=== PATIENT | female | born 1980 ===

== ENCOUNTER 2018-06-12 13:16 | Emergency (ER) | payer BC, MEDICAID ==
[2018-06-12 13:42] VITALS: BP 115/77; PULSE 77; RESP 20; TEMP 98.8; O2SAT 100
--- NOTE | 2018-06-12 14:30 | C.PDOC ---
History Of Present Illness 37 y/o female presents to the ER complaining of anxiety and occasional palpitations. Patient states that her sister in the [place] today, her sister had long course of complications after childbirth. Patient denies having history of anxiety, CP, and SOB. Time Seen by Provider: 06/12/18 14:24 Chief Complaint (Nursing): Medical Clearance History Per: Patient History/Exam Limitations: no limitations Onset/Duration Of Symptoms: Hrs Current Symptoms Are (Timing): Still Present Severity: Moderate Past Medical History Reviewed: Historical Data, Nursing Documentation, Vital Signs Vital Signs: Last Vital Signs Temp 98.8 F 06/12/18 13:38 Pulse 77 06/12/18 13:38 Resp 20 06/12/18 13:38 BP 115/77 06/12/18 13:38 Pulse Ox 100 06/12/18 13:38 - Medical History PMH: Anemia (sickle cell trait) Denies: Chronic Kidney Disease Surgical History: Appendectomy - [facility] Procedures EXTRACTION OF POC, LOW CERVICAL, OPEN APPROACH (10/04/16) Family History: States: No Known Family Hx - Social History Hx Alcohol Use: No Hx Substance Use: No - Immunization History Hx Tetanus Toxoid Vaccination: No Hx Influenza Vaccination: No Hx Pneumococcal Vaccination: No Review Of Systems Except As Marked, All Systems Reviewed And Found Negative. Constitutional: Negative for: Fever, Chills Cardiovascular: Negative for: Chest Pain Respiratory: Negative for: Shortness of Breath Psych: Positive for: Anxiety Physical Exam - Physical Exam Appears: Non-toxic, No Acute Distress, Other (calm,cooperative, not tearful) Skin: Normal Color, Warm, Dry Head: Atraumatic, Normacephalic Eye(s): bilateral: Normal Inspection Nose: Normal Oral Mucosa: Moist Neck: Supple Chest: Symmetrical Cardiovascular: Rhythm Regular Respiratory: Normal Breath Sounds, No Rales, No Rhonchi, No Wheezing Neurological/Psych: Oriented x3, Normal Speech ED Course And Treatment O2 Sat by Pulse Oximetry: 100 (RA) Pulse Ox Interpretation: Normal Medical Decision Making Medical Decision Making: post-stress, sister in [place] earlier today normal EKG Disposition Doctor Will See Patient In The: Office Counseled Patient/Family Regarding: Studies Performed, Diagnosis - Disposition Referrals: [facility] [Outside] [facility] [Outside] [facility] [Outside] [place] [facility] [Outside] Disposition: HOME/ ROUTINE Disposition Time: 14:29 Condition: GOOD Additional Instructions: EKG normal Sigue con [facility] por schafer anxieded o' tristesa zach necessario Instructions: Anxiety, Adult (DC) Forms: [facility] (Montenegrin) Print Language: ALBANIAN - Clinical Impression Clinical Impression: Medical assessment, Anxiety - Scribe Statement The provider has reviewed the documentation as recorded by the Cuca Jimenez Provider Attestation: All medical record entries made by the Guillermoiblenore were at my direction and personally dictated by me. I have reviewed the chart and agree that the record accurately reflects my personal performance of the history, physical exam, medical decision making, and the department course for this patient. I have also personally directed, reviewed, and agree with the discharge instructions and disposition.
--- NOTE | 2018-06-13 12:22 | CARD ---
APPROVED REPORT Date of service: 06/12/2018 EKG Measurement Heart [id number] <Conclusion> Normal sinus rhythm Normal ECG
== END 2018-06-12 15:08 | disposition home or self-care (01) ==
LOC: C.ER 13:16
DX: F41.9 Anxiety disorder, unspecified (principal); D57.3 Sickle-cell trait